=== PATIENT | male | born 1945 | race Caucasian/White ===

== ENCOUNTER → 2024-03-24 15:44 | Outpatient (REF) | payer BC, SELFPAY | LOC: HWRCS 15:44 | PROVIDERS: ATTENDING PHYSICIAN Internal Medicine Cardiovascular Disease; FAMILY PHYSICIAN Family Medicine | DX: I48.0 Paroxysmal atrial fibrillation (principal); I44.7 Left bundle-branch block, unspecified | CPT/HCPCS: 93306 ==

== ENCOUNTER 2024-05-06 06:24 | Day surgery (SDC) | payer BC, SELFPAY ==
--- NOTE | 2024-04-18 08:09 | HPS.HSE ---
Family Physician
-
Family Physician: Radha Early
Chief Complaint
-
Paroxysmal atrial fibrillation. Left bundle branch block.
History of Present Illness
The patient is a 78 year old male presenting today with various cardiovascular diagnoses. He previously was diagnosed with a left bundle branch block associated with syncope for which he had a Medtronic dual chamber pacemaker inserted in
2012. He also has a history of paroxysmal atrial fibrillation with occasional palpitations. His atrial fibrillation has been relatively well controlled with Carvedilol and Sotalol. He takes Eliquis for oral anticoagulation due to a CHADS-VASc of 6.
He was noted to have a battery longevity of 2 months left during his remote pacemaker device check in early March 2024. He will therefore undergo a pacemaker generator change. He denies any new complaints today such as chest pain, shortness of breath,
nausea, vomiting, diarrhea, lightheadedness, dizziness, cough, sore throat, or fever.
Medical History
Past Medical History
Past Medical History: Reports Other
Additional Past Medical History:
1. Left bundle branch block with syncope, status post Medtronic dual chamber pacemaker insertion 2012.
2. Paroxysmal atrial fibrillation, pharmacological therapy with Sotalol and Carvedilol, oral anticoagulation with Eliquis.
3. Hypertension.
4. Hyperlipidemia.
5. Suspected coronary artery disease based off nuclear stress test 2015 with associated angina.
6. Mild aortic regurgitation.
7. Probable obstructive sleep apnea.
8. GERD.
9. Irritable bowel syndrome per records.
10. 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
11. Multilevel degenerative disc disease with radiculopathy.
12. Osteoarthritis, status post bilateral total knee arthroplasty, 2008, and revision of bilateral total knee arthroplasty 2010.
13. Thyroid nodules with associated hyperthyroidism.
14. Prostate cancer, 2020, status post radiation.
15. BPH with LUTS.
16. Hearing impairment bilaterally.
Past Surgical History: Reports Other
Additional Past Surgical History:
1. Medtronic dual chamber pacemaker insertion.
2. Bilateral total knee arthroplasty.
3. Revision of bilateral total knee arthroplasty.
4. Left knee medial meniscectomy.
5. Left rotator cuff repair.
6. Resetting of dislocated right toes x2.
7. Prostate biopsy.
8. Bilateral eye surgery for double vision.
9. Right eye lens implant.
10. Multiple epidural steroid injections.
11. Colonoscopy x2.
Social History
Tobacco: Non-smoker
Alcohol: None
Personal:
Living: Other (He lives in a 2 story home with a basement with his . )
Family History
Family History: Not pertinent
Allergies / Home Medications
Allergy/Medication List:
Home medications:
1. Eliquis 5 mg p.o. twice a day.
2. Atorvastatin 40 mg p.o. at bedtime.
3. Carvedilol 12.5 mg p.o. twice a day.
4. Lisinopril 5 mg p.o. daily.
5. Methimazole 5 mg p.o. daily.
6. Multivitamin 1 tablet p.o. daily.
7. Sotalol 80 mg p.o. twice a day.
8. Terazosin 5 mg p.o. at bedtime.
9. Nitroglycerin 0.4 mg sublingual every 5-15 minutes as needed (max of 3 doses).
Allergies: Aspirin. Naproxen.
Review of Systems
-
A 12 point ROS was completed and negative except as noted: Yes
Physical Exam
Vital Signs
Blood pressure 162/89. Heart rate 60. Respirations 18. Pulse ox 98% on room air.
Height 5 feet, 8 inches. Weight 69.9 kg. BMI 23.4.
Physical Exam
General: Well Developed, Well Nourished and No Apparent Distress
HEENT: NormoCephalic, Moist mucous membranes, Atraumatic and PERRLA
Respiratory: Clear
Cardiac: Regular Rhythm and Other (Pacemaker site intact. )
GI: Soft, Non Tender and Non Distended
Musculoskeletal: No Edema and Normal Gait & Station
Skin: Warm and Dry
Neuro: AO x 3 and Nonfocal/grossly intact
Laboratory Results
-
DIAGNOSTIC STUDIES as of 04/18/2024: White blood cell count 6.8. Hemoglobin 15.4. Platelet count 171,000. Sodium 140. Potassium 4.4. BUN 29. Creatinine 1.1. Glucose 95. Calcium 9.5. AST 31. ALT 28. Albumin 3.7.
EKG 04/18/2024: Atrial paced rhythm with prolonged AV conduction. Left axis deviation. Left bundle branch block. Compared to the previous EKG of May 23, 2021, no significant change was seen.
Echocardiogram 03/24/2024: Normal left ventricular chamber size with mildly reduced systolic function; left ventricular ejection fraction is 45-50% by visual assessment. Hypokinesis of the mid to distal septal wall. Abnormal (paradoxical) septal
motion consistent with left bundle branch block. Mild aortic regurgitation. Compared to previous echo images from 07/21/22, the septal wall hypokinesis is new.
Nuclear stress test 05/21/2021: Small, fixed apical, apical septal and inferoseptal perfusion defects suggestive of small areas of prior myocardial infarction. No reversible perfusion defects to suggest myocardial ischemia. Ejection fraction 41% on
gated stress images. Intermediate risk study. When compared with the previous study from 08/29/16, the basal anterolateral ischemia is no longer seen. The previous fixed inferoseptal and inferior perfusion defects are again seen on today's study.
The ejection fraction is similar; previous study with ejection fraction 45%.
Impression/Plan
-
IMPRESSION/PLAN:
1. Left bundle branch block and paroxysmal atrial fibrillation: The patient is in need of a pacemaker generator change with Dr. Gideon Kumar on 05/06/2024. The benefits and risks of the procedure have been explained to the patient. The patient
understands these risks and wishes to proceed. He is aware to hold his Eliquis the night before and morning of his procedure.
[2024-04-18 08:38] LABS: % Basophils 0.6 % (0-2); % Immature Granulocytes 0.4 % (0-0.5); % Lymphocytes 15.9 % (20.5-51.1); % Monocytes 12.1 % (1.7-9.3); Absolute Eosinophils 0.3 10^3/uL (0-0.7); Absolute Lymphocytes 1.1 10^3/uL (1.2-3.4); Absolute Monocytes 0.8 10^3/uL (0.1-0.6); Absolute Neutrophils 4.6 10^3/uL (1.4-6.5); Hematocrit 45.4 % (39.0-52.0); Hemoglobin 15.4 g/dL (13.0-18.0); Mean Corp Hgb Conc. 33.9 g/dL (33.0-37.0); Mean Corpuscular Hgb 31.8 pg (27.0-31.0); Mean Corpuscular Volume 93.8 fL (80.0-94.0); Mean Platelet Volume 10.1 fL (7.4-10.4); Nucleated Red Blood Cells % 0 % (-); Platelet Count 171 10^3/uL (130-400); Red Blood Cell Count 4.84 10^6/uL (4.70-6.10); Red Cell Dist. Width 12.7 % (11.5-14.5); White Blood Cell Count 6.8 10^3/uL (4.8-10.8)
[2024-04-18 08:55] LABS: ALT (SGPT) 28 U/L (0-50); AST (SGOT) 31 U/L (17-59); Albumin 3.7 g/dl (3.5-5.0); Alkaline Phosphatase 87 U/L (38-126); Blood Urea Nitrogen 29 mg/dl (9-20); Calcium 9.5 mg/dl (8.4-10.2); Carbon Dioxide 27 mmol/L (22-30); Chloride 107 mmol/L (98-107); Glucose 95 mg/dl (70-99); Potassium 4.4 mmol/L (3.5-5.1); Sodium 140 mmol/L (135-145); Total Bilirubin 1.3 mg/dl (0.2-1.3); Total Protein 6.3 g/dl (6.3-8.2); eGFR > 60.00
[2024-04-18 09:32] VITALS: BMI 23.4
[2024-05-06] VITALS (8 sets, daily range): BP systolic 133–167; BP diastolic 69–89; BMI 24.9
--- NOTE | 2024-05-06 09:47 | ITS.CL.PACE ---
[employer] - Pacemaker Implant
Pacemaker Implant
Procedure Report:
Date of Procedure: May 06, 2024
Procedure: Dual chamber pacemaker generator change. Pacemaker pulse generator explantation and pacemaker pulse generator implantation.
Indication: Pacemaker at [facility] from natural battery depletion. The pacemaker is for the treatment of nonreversible symptomatic bradycardia due to paroxysmal second and/or third degree atrioventricular block.
Performing physician: Gideon Kumar MD, [facility].
Implant: Pacemaker Pulse Generator: Medtronic; Model# [id number]; Serial# [id number].
Explanted Pacemaker Pulse Generator (Implanted 05/10/2013): Medtronic: Model# [id number]; Serial# [id number].
Retained Leads (Implanted 05/10/2013):
RA Lead: Medtronic; Model# [id number]-45cm; Serial# [id number].
RV Lead: Medtronic; Model# [id number]-52cm; Serial# [id number].
Technique: A time out was performed. The procedure site was identified. The patient was anesthetized by the anesthesia service. Preoperative cefazolin was administered prior to skin incision. The patient was prepped and draped in the usual fashion.
Local anesthetic was applied to the left prepectoral subcutaneous tissue. A 3 inch incision was made over the pulse generator. The capsule was entered with Bovie cautery. The old pacemaker pulse generator was explanted. No Bovie cautery was applied
to the lead system. The leads were appropriately attached to the new device. The pocket was irrigated with antibiotic solution. Hemostasis was excellent. The device and leads were placed in the pocket. The incision was closed in three layers with
absorbable suture. Steri-strips and an silver impregnated dressing were applied. The estimated blood loss was 1 mL. There were no complications. No fluoroscopy.
Lead Analysis:
RA lead: P: 1.8 mV; Threshold: 0.75 V @ 0.4 ms; Impedance: 361 ohms.
RV lead: R: 13.4 mV; Threshold: 1.5 V @ 0.4 ms; Impedance: 380 ohms.
Final Programming: DDDR 60 - 130 bpm.
Conclusion: Uncomplicated Medtronic pacemaker change. The pacemaker system is MRI conditional.
Recommendation: Routine post pacemaker care.
cc: Radha Early DO.
== END 2024-05-06 10:25 | disposition home or self-care (01) ==
LOC: CATH 06:24
PROVIDERS: ATTENDING PHYSICIAN Internal Medicine Cardiovascular Disease; FAMILY PHYSICIAN Family Medicine
DX: Z45.010 Encounter for checking and testing of cardiac pacemaker pulse generator [battery] (principal); I49.5 Sick sinus syndrome; I44.30 Unspecified atrioventricular block; I44.7 Left bundle-branch block, unspecified; I48.0 Paroxysmal atrial fibrillation; I25.10 Atherosclerotic heart disease of native coronary artery without angina pectoris; I10 Essential (primary) hypertension; E78.5 Hyperlipidemia, unspecified; I35.1 Nonrheumatic aortic (valve) insufficiency; K21.9 Gastro-esophageal reflux disease without esophagitis; Z85.46 Personal history of malignant neoplasm of prostate; Z79.01 Long term (current) use of anticoagulants
CPT/HCPCS: 33228; 36415; 80053; 85025; 93005; C1785

== ENCOUNTER → 2024-06-15 12:00 | Outpatient (REF) | payer BC, SELFPAY | LOC: DHSLP 12:00 | PROVIDERS: ATTENDING PHYSICIAN Internal Medicine Critical Care Medicine; FAMILY PHYSICIAN Family Medicine | DX: G47.33 Obstructive sleep apnea (adult) (pediatric) (principal) | CPT/HCPCS: 95806 ==

== ENCOUNTER 2024-08-28 08:11 | Emergency (ER) | payer BC, SELFPAY ==
[2024-08-28] VITALS (24 sets, daily range): BP systolic 94–153; BP diastolic 63–120
[2024-08-28 08:59] LABS: % Basophils 0.4 % (0-2); % Eosinophils 2.3 % (0-6); % Immature Granulocytes 0.4 % (0-0.5); % Lymphocytes 11.9 % (20.5-51.1); % Monocytes 7.6 % (1.7-9.3); % Neutrophils 77.4 % (42.2-75.2); Absolute Eosinophils 0.2 10^3/uL (0-0.7); Absolute Lymphocytes 0.9 10^3/uL (1.2-3.4); Absolute Monocytes 0.6 10^3/uL (0.1-0.6); Absolute Neutrophils 5.9 10^3/uL (1.4-6.5); Hematocrit 49.8 % (39.0-52.0); Hemoglobin 16.6 g/dL (13.0-18.0); Mean Corp Hgb Conc. 33.3 g/dL (33.0-37.0); Mean Corpuscular Hgb 31.9 pg (27.0-31.0); Mean Corpuscular Volume 95.6 fL (80.0-94.0); Mean Platelet Volume 10.3 fL (7.4-10.4); Nucleated Red Blood Cells % 0 % (-); Platelet Count 187 10^3/uL (130-400); Red Blood Cell Count 5.21 10^6/uL (4.70-6.10); White Blood Cell Count 7.7 10^3/uL (4.8-10.8)
[2024-08-28 09:03] LABS: INR 1.15; PT 14.5 Sec (11.4-14.6)
--- NOTE | 2024-08-28 09:06 | ED.GENMED ---
History of Present Illness
<Margaret Gilman PA-C - Last Filed: 08/28/24 15:32>
General
Chief Complaint: Chest Pain
Source: patient
Exam Limitations: none
Time Seen by Provider: 08/28/24 09:03
Nursing documentation reviewed up to this point in time: agreed with
History of Present Illness
History of Present Illness:
79-year-old male past medical history of A-fib on Eliquis, hypertension, thyroid disease, coronary artery disease, pacemaker in place presents emergency department today with concerns of chest discomfort since last night. He states that he woke up
in the night with this sensation. Patient states that he feels in a band across his chest. He has no radiation of these symptoms into the jaw or extremities. He denies any fevers, cough, URI symptoms, abdominal pain, nausea, vomiting. Patient
states that he felt this way before when he has gone into afib. He has required cardioversion in the past. He also has associated transient dizziness/lightheadedness. He denies syncopal episodes. He takes carvedilol and sotalol for rate control. He
has a Medtronic pacemaker.
Past History
<Margaret Gilman PA-C - Last Filed: 08/28/24 15:32>
Past History
ED Past Medical History: Arrthythmia (bradycardia), Other (R BBB) and Other (pacer)
ED Past Surgical History: Cardiac
Social History
Tobacco: Non-smoker
Drug: None
Personal:
Living: with family
Employment: Employed
Family History
Family History: Other (His mother had a pacemaker. His father had rheumatic fever with a 'weak heart')
Review of Systems
<Margaret Gilman PA-C - Last Filed: 08/28/24 15:32>
Review of Systems
All Other Systems: ROS reviewed and negative except as documented in HPI and ROS
Phy Exam
<Margaret Gilman PA-C - Last Filed: 08/28/24 15:32>
Physical Exam
Physical Exam:
General: Patient is well appearing and in no acute distress; non-toxic
Skin: Warm and dry, no rashes or lesions
Head: Normocephalic, atraumatic
Eyes: Sclera non-icteric. EOMs intact. PERRLA.
Cardiac: Heart rate irregularly irregular
Peripheral Vascular: No lower extremity swelling or edema, 2+ dorsalis pedis and posterior tibial pulses bilaterally
Pulm: Normal respiratory effort, no wheezes, rales, or rhonchi
Neuro: CN II-XII intact, no focal neurologic deficits.
Psychiatric: Appropriate mood and affect.
Scores
<Margaret Gilman PA-C - Last Filed: 08/28/24 15:32>
Heart Score for Chest Pain Patients
STEMI patient?: No
History: Slightly or Non-Suspicious
ECG: Nonspecific Repolarization
Age: >/= 65 years
Risk Factors: >/= 3 Risk Factors or History of CAD
Troponin: >1 - <3 x Normal Limit
Heart Score for Chest Pain Patients: 6
Heart Score Risk: 20.3% MACE over next 6 weeks
<Naseem Geiger DO - Last Filed: 08/29/24 12:07>
Heart Score for Chest Pain Patients
Heart Score for Chest Pain Patients: 6
Heart Score Risk: 20.3% MACE over next 6 weeks
Course
<Margaret Gilman PA-C - Last Filed: 08/28/24 15:32>
Orders/Labs/Results
Orders:
Orders
08/28/24 08:15
EKG [Electrocardiogram (*1)] Urgent
Reason for Study: Chest Pain
08/28/24 08:16
EKG- Treatment ONCE
08/28/24 08:44
Complete Blood Count/With Diff Urgent
Comprehensive Metabolic Panel Urgent
PT/INR [Prothrombin Time] Urgent
PTT Urgent
Troponin I Urgent
08/28/24 09:20
pacemaker [Interrogate Pacemaker- Treatment] ONCE
08/28/24 09:30
Diltiazem HCl [Cardizem] 10 mg IV NOW STA
08/28/24 09:39
Add On- LAB Urgent
Tests Added?: TSH reflex to T4
08/28/24 09:45
Diltiazem 125 mg/125 ml Nss [Cardizem] 125 mg in 125 ml IV PER PROTOCOL
Initial dose in mg/hr, then titrate:: 5
Titrate to keep:: Heart rate 80-100 bpm
Titrate by mg/hr:: 5 mg/hr
Frequency of titrations (minutes):: 15
Maximum dose in mg/hr:: 15
08/28/24 10:12
Electrocardiogram (*1) Urgent
Reason for Study: Atrial Fibrillation
EKG- Treatment ONCE
08/28/24 10:28
Electrocardiogram (*1) Urgent
Reason for Study: Chest Pain
EKG- Treatment ONCE
08/28/24 11:15
Apixaban [Eliquis] 5 mg PO BID
08/28/24 12:17
Propofol [Diprivan] 20 ml .ROUTE .STK-MED
Abnormal Lab Results
08/28/24
08:44
MCV 95.6 H fL
(80.0-94.0)
MCH 31.9 H pg
(27.0-31.0)
Absolute Lymphs (auto) 0.9 L 10^3/uL
(1.2-3.4)
Neutrophils % 77.4 H %
(42.2-75.2)
Lymphocytes % 11.9 L %
(20.5-51.1)
BUN 25 H mg/dl
(9-20)
Glucose 147 H mg/dl
(70-99)
08/28/24 08:44
08/28/24 08:44
Vital Signs
Initial and Last Documented VS:
Initial Vital Signs
Temp Pulse Resp BP Pulse Ox
98.5 F 136 16 111/79 98
08/28/24 08:20 08/28/24 08:20 08/28/24 08:20 08/28/24 08:20 08/28/24 08:20
Last Documented Vital Signs
Temp Pulse Resp BP Pulse Ox
98 F 61 21 142/105 94
08/28/24 13:50 08/28/24 13:45 08/28/24 13:45 08/28/24 13:45 08/28/24 13:30
<Naseem Geiger, DO - Last Filed: 08/29/24 12:07>
Orders/Labs/Results
Orders:
Orders
08/28/24 08:15
EKG [Electrocardiogram (*1)] Urgent
Reason for Study: Chest Pain
08/28/24 08:16
EKG- Treatment ONCE
08/28/24 08:44
Complete Blood Count/With Diff Urgent
Comprehensive Metabolic Panel Urgent
PT/INR [Prothrombin Time] Urgent
PTT Urgent
Troponin I Urgent
08/28/24 09:20
pacemaker [Interrogate Pacemaker- Treatment] ONCE
08/28/24 09:30
Diltiazem HCl [Cardizem] 10 mg IV NOW STA
08/28/24 09:39
Add On- LAB Urgent
Tests Added?: TSH reflex to T4
08/28/24 09:45
Diltiazem 125 mg/125 ml Nss [Cardizem] 125 mg in 125 ml IV PER PROTOCOL
Initial dose in mg/hr, then titrate:: 5
Titrate to keep:: Heart rate 80-100 bpm
Titrate by mg/hr:: 5 mg/hr
Frequency of titrations (minutes):: 15
Maximum dose in mg/hr:: 15
08/28/24 10:12
Electrocardiogram (*1) Urgent
Reason for Study: Atrial Fibrillation
EKG- Treatment ONCE
08/28/24 10:28
Electrocardiogram (*1) Urgent
Reason for Study: Chest Pain
EKG- Treatment ONCE
08/28/24 11:15
Apixaban [Eliquis] 5 mg PO BID
08/28/24 12:17
Propofol [Diprivan] 20 ml .ROUTE .STK-MED
Abnormal Lab Results
08/28/24
08:44
MCV 95.6 H fL
(80.0-94.0)
MCH 31.9 H pg
(27.0-31.0)
Absolute Lymphs (auto) 0.9 L 10^3/uL
(1.2-3.4)
Neutrophils % 77.4 H %
(42.2-75.2)
Lymphocytes % 11.9 L %
(20.5-51.1)
BUN 25 H mg/dl
(9-20)
Glucose 147 H mg/dl
(70-99)
08/28/24 08:44
08/28/24 08:44
Vital Signs
Initial and Last Documented VS:
Initial Vital Signs
Temp Pulse Resp BP Pulse Ox
98.5 F 136 16 111/79 98
08/28/24 08:20 08/28/24 08:20 08/28/24 08:20 08/28/24 08:20 08/28/24 08:20
Last Documented Vital Signs
Temp Pulse Resp BP Pulse Ox
98 F 61 21 142/105 94
08/28/24 13:50 08/28/24 13:45 08/28/24 13:45 08/28/24 13:45 08/28/24 13:30
Procedures
<Margaret Gilman PA-C - Last Filed: 08/28/24 15:32>
Moderate Sedation
ASA Risk Score: Class III
Chart and allergies reviewed: Yes
Consent for anesthesia obtained: Yes
Time out completed (validating right patient & procedure): Yes
Moderate Sedation Start Time(when first medication is given): 12:40
History of difficult intubation: No
Airway free of obstruction: Yes
Patient has a gag reflex: Yes
Patient is able to open mouth: Yes
Patient has no dentures: Yes
Patient has no loose teeth: Yes
Medication administered by Provider during Moderate Sedation: IV Propofol (mg)
Total dose administered: 55
Time drug administered: 12:40
Moderate Sedation Procedure End Time: 12:50
Cardioversion
Indication:: Afib
Synchronized?: Yes
Energy Used: 150 joules
Successful?: Yes
Any reaction or bad outcome to prior sedation/anesthesia?: No history of a reaction
Sedation level to be attained: moderate
Time out completed at (validating right patient & procedure): 12:38
Medication administered by Provider during Moderate Sedation: IV Propofol (mg)
Total dose administered: 55
Time drug administered: 12:40
Start Time: 12:40
Stop Time: 12:50
<Margaret Gilman PA-C - Last Filed: 08/28/24 15:32>
MDM/Problems Addressed
Differential Diagnosis Includes:
ddx include symptomatic afib, ACS, thyroid disease
MDM/Problems Addressed:
79-year-old male past medical history of A-fib on Eliquis, hypertension, thyroid disease, coronary artery disease, pacemaker in place presents emergency department today with concerns of chest discomfort since last night.
he states he feels this way when he goes into afib. Patient was found to be in rapid afib, pressure stable. Will order pacemaker interrogation, will give diltiazem bolus and start IV drip.
CBC, CMP unremarkable. On reassessment, patient is symptom free. His heart rate is in the 70s with afib noted. Will consult Dr. Kumar. Case reviewed with Dr. Kumar via telephone who recommends cardioversion. Patient did not take his Eliquis this
morning. Will give Eliquis dose. My attending Dr. Geiger made aware and personally evaluated patient and conducted cardioversion. Patient successfully cardioverted. here to take patient home, patient's vitals are stable, patient will call
José's office to schedule sooner follow up appointment. Patient stable for discharge.
Chronic conditions affecting care:
CAD, afib on eliquis, HTN,
<Margaret Gilman PA-C - Last Filed: 08/28/24 15:32>
*Pulse Oximetry
Patient hypoxic: no
*EKG
Interpreted by ED Provider?: Yes
EKG Intrepretation Date: 08/28/24
Interpretation: abnormal
Comparison EKG: changes noted (rapid afib, increase in ventricular rate )
Heart Rate: 126
Rate: tachycardiac
Rhythm: a-fib
[place]: left axis deviation
QRS Pattern: left bundle branch block
Ischemia: no ischemia
*Critical Care Note
Total Time (30-74mins, 75-104mins- exclusive of procedures): 30
comment:
Critical care statement: A total of minutes of critical care time was provided for this patient. This includes management of unstable vital signs, evaluation of the patient at bedside, frequent reassessment, discussion with consultants/hospitalist,
and review of pertinent medical records. This time was separate from time utilized to perform any aforementioned documented procedures.
Data Reviewed
Review of Other/Old Records Reveals: Records (Reviewed ER physician documentation from 12/13/2020 patient seen for A-fib, cardioverted at the time, reviewed discharge summary from 05/24/2021, patient needed for coronary artery disease rapid A-fib had
positive stress test)
Source: patient and records
Prescriptions/Medications Considered But Not Given:
Due to cardioversion, no change in patient's rate control medications at this time. Advised patient to continue his medications as directed.
Further Testing Considered But Not Given:
n/a
<Margaret Gilman PA-C - Last Filed: 08/28/24 15:32>
Patient Management
Escalation/DeEscalation of care consider admission/obs:
admit not indicated, patient stable for discharge
<SOFIA Shukla Last Filed: 08/28/24 15:32>
Update Note
Update Note:
Medtronic pacemaker call: ongoing atrial arrhythmia since yesterday
has had 3 SVT episodes since last interrogation, most recent earlier this morning
occassional under sensing on atrial lead

10:06 am-- Patient states chest discomfort has resolved, denies dizziness. Rate now in the 90s-110s.
ED Attending Note
<SOFIA Shukla Last Filed: 08/28/24 15:32>
-
Portions of this chart may have been created with voice recognition software.� Occasional wrong word or��sound alike� substitutions may have occurred due to the inherent limitations of voice recognition software.
<Naseem Geiger DO - Last Filed: 08/29/24 12:07>
ED Attending Note
Patient seen and examined by attending physician: Yes
I performed a history and physical exam of patient and discussed management with resident, I reviewed resident's note and agree with documented findings and plan of care.: Yes
ED Attending Note:
I reviewed and agree with history and plan by Margaret Gilman. My exam revealed 79-year-old male in atrial fibrillation, patient tolerated sedation and cardioversion well. Stable for discharge.
Discharge Plan
Departure
Patient Disposition: Home (Routine Discharge)
Date of Disposition: 08/28/24
Time of Disposition: 13:30
Patient with high blood pressure during this ER visit?: Yes
Condition: Good
Discharge Problem:
Atrial fibrillation
Instructions: Cardioversion (DC), Procedural Sedation, Adult ED, MODERATE SEDATION ADULT, BLOOD PRESSURE
Prescriptions:
No Action
atorvastatin 40 MG tablet
40 mg PO HS
methimazole 5 MG tablet
5 mg PO DAILY
carvedilol 12.5 mg Tablet
12.5 mg PO BID
sotalol 80 mg Tablet
80 mg PO BID
lisinopril 5 mg Tablet
5 mg PO DAILY
Eliquis 5 mg Tablet
5 mg PO BID
nitroglycerin 0.4 mg Tablet, Sublingual
0.4 mg SUBLINGUAL Q5-15M PRN (Reason: angina)
terazosin 5 mg Capsule
5 mg PO HS
multivitamin with iron Tablet
1 tab PO DAILY
cephalexin 500 mg capsule
500 mg PO Q8H Qty: 3 0RF
Rx Instructions:
First dose due at 2pm today
Referrals:
Radha Early, DO [Family Provider] -
Gideon Kumar MD [Active] - Call in 1-3 days for appt
Activity Restrictions/Additional Instructions:
Please call Dr. Kumar's office to schedule follow up appointment.
Please return to the emergency department should you experience chest pain, shortness of breath, dizziness, lightheadedness, headache, syncopal episodes, difficulty speaking, facial droop, or any other concerning signs or symptoms.
Interventions
Interventions:
*Risk Screen - Suicide Last Done: 08/28/24 08:20
*General Assessment Last Done: 08/28/24 08:20
*Neglect/Abuse Screening Last Done: 08/28/24 08:20
ED- Fall Risk Assessment Last Done: 08/28/24 13:52
*ED COVID-19 Vaccine History Last Done: 08/28/24 08:53
*Nursing Disposition Last Done: 08/28/24 13:52
ED- Cardiac Assessment Last Done: 08/28/24 08:53
Discharge Date and Time
Discharge Date/Time: 08/28/24 13:58
Print Language: MAORI
[2024-08-28 09:24] LABS: ALT (SGPT) 23 U/L (0-50); AST (SGOT) 32 U/L (17-59); Alkaline Phosphatase 88 U/L (38-126); Blood Urea Nitrogen 25 mg/dl (9-20); Calcium 9.3 mg/dl (8.4-10.2); Carbon Dioxide 26 mmol/L (22-30); Chloride 104 mmol/L (98-107); Glucose 147 mg/dl (70-99); Potassium 4.5 mmol/L (3.5-5.1); Sodium 140 mmol/L (135-145); Total Bilirubin 1.2 mg/dl (0.2-1.3); Total Protein 6.5 g/dl (6.3-8.2); eGFR > 60.00
[2024-08-28 09:37] LABS: Troponin I 0.021 ng/ml
[2024-08-28] MEDS: CARDIZEM 10 MG IV (09:42)
[2024-08-28] MEDS: CARDIZEM 125 IV (09:42)
[2024-08-28] MEDS: ELIQUIS 5 MG PO (11:14)
== END 2024-08-28 13:58 | disposition home or self-care (01) ==
LOC: EMR 08:11
PROVIDERS: EMERGENCY PHYSICIAN Emergency Medicine; FAMILY PHYSICIAN Family Medicine
DX: I48.91 Unspecified atrial fibrillation (principal); I10 Essential (primary) hypertension; I25.10 Atherosclerotic heart disease of native coronary artery without angina pectoris; Z79.01 Long term (current) use of anticoagulants; Z95.0 Presence of cardiac pacemaker
CPT/HCPCS: 99291; 92960; 96374; 99152; 80053; 84484; 85025; 85610; 85730; 93005

== ENCOUNTER 2024-11-11 10:09 | Emergency (ER) | payer BC, SELFPAY ==
[2024-11-11] VITALS (17 sets, daily range): BP systolic 96–164; BP diastolic 63–123; BMI 26.2
--- NOTE | 2024-11-11 10:20 | ED.GENMED ---
ED Provider Triage
<José Luis Naqvi PA-C - Last Filed: 11/11/24 10:21>
-
Patient seen by provider in Triage?: Seen in Triage
79-year-old male sent in by family doctor via EMS for complaints of lightheadedness. This started yesterday. He also had some chest discomfort yesterday. He is on lisinopril and Coreg as well as Eliquis. He denies headache. No current chest
pain. He denies a spinning sensation but does note more of a lightheaded sensation.
Patient is alert and neurologically and conversing appropriately with stable vital signs
EKG ordered as well as labs including a troponin secondary to the chest pain yesterday.
Patient evaluated by healthcare provider at triage but warrants further assessment
History of Present Illness
<José Luis Naqvi PA-C - Last Filed: 11/11/24 10:21>
General
Chief Complaint: Heart Rate Problem
Time Seen by Provider: 11/11/24 14:20
<Bernardino Lopez PA-C - Last Filed: 11/11/24 20:36>
History of Present Illness
History of Present Illness:
79-year-old male presents the emergency department for evaluation of chest discomfort and irregular heart rate. He has no history of A-fib and takes Eliquis as well as sotalol. Has a pacemaker in place. Required cardioversion about 3 months ago.
Planning to follow-up with his laboratory associate to discuss a cardioversion. Has been compliant with his Eliquis to date. No chest pain or shortness of breath at rest
Past History
<José Luis Naqvi PA-C - Last Filed: 11/11/24 10:21>
Past History
ED Past Medical History: Arrthythmia (bradycardia), Other (R BBB) and Other (pacer)
ED Past Surgical History: Cardiac
Social History
Tobacco: Non-smoker
Drug: None
Personal:
Living: with family
Employment: Employed
Family History
Family History: Other (His mother had a pacemaker. His father had rheumatic fever with a 'weak heart')
Review of Systems
<Bernardino Lopez PA-C - Last Filed: 11/11/24 20:36>
Review of Systems
Allergies reviewed?: Yes
All Other Systems: ROS reviewed and negative except as documented in HPI and ROS
Phy Exam
<Bernardino Lopez PA-C - Last Filed: 11/11/24 20:36>
Physical Exam
Physical Exam:
GEN: Well appearing, NAD, WDWN
HEENT: Oral mucosa moist, no scleral icterus
Cardiac: Irregular and tachycardic
Lung: No respiratory distress, no tachypnea
MSK: No gross deformity or injuries
Skin: Good color, no pallor or jaundice, no rashes
Neuro: AO x3, moves all extremities freely
Psych: Calm, cooperative
Course
<José Luis Naqvi PA-C - Last Filed: 11/11/24 10:21>
Orders/Labs/Results
Orders:
Orders
11/11/24 10:17
EKG [Electrocardiogram (*1)] Urgent
Reason for Study: Syncope
11/11/24 10:18
EKG- Treatment ONCE
11/11/24 10:21
CR Chest - 2 Views Urgent
Comment:
Reason For Exam: chest pain
11/11/24 10:33
Complete Blood Count/With Diff Urgent
Comprehensive Metabolic Panel Urgent
TSH Reflex To Free T4 Urgent
Troponin I Urgent
11/11/24 14:39
Troponin I Urgent
11/11/24 15:05
Electrocardiogram (*1) Urgent
Reason for Study: Other
Other Reason for Exam: repeat troponin
EKG- Treatment ONCE
11/11/24 15:40
Propofol [Diprivan] 20 ml .ROUTE .STK-MED
Abnormal Lab Results
11/11/24
10:33
MCV 95.6 H fL
(80.0-94.0)
MCH 31.3 H pg
(27.0-31.0)
MCHC 32.7 L g/dL
(33.0-37.0)
Absolute Lymphs (auto) 0.8 L 10^3/uL
(1.2-3.4)
Absolute Monos (auto) 0.8 H 10^3/uL
(0.1-0.6)
Neutrophils % 77.5 H %
(42.2-75.2)
Lymphocytes % 10.0 L %
(20.5-51.1)
Monocytes % 9.5 H %
(1.7-9.3)
BUN 29 H mg/dl
(9-20)
Total Bilirubin 1.4 H mg/dl
(0.2-1.3)
11/11/24 10:33
11/11/24 10:33
Vital Signs
Initial and Last Documented VS:
Initial Vital Signs
Temp Pulse Resp BP Pulse Ox
97.6 F 80 18 98/63 98
11/11/24 10:21 11/11/24 10:21 11/11/24 10:21 11/11/24 10:21 11/11/24 10:21
Last Documented Vital Signs
Temp Pulse Resp BP Pulse Ox
97.6 F 61 13 127/76 96
11/11/24 16:28 11/11/24 17:20 11/11/24 17:20 11/11/24 17:20 11/11/24 17:20
<Yareli Gomez DO - Last Filed: 11/11/24 16:12>
Orders/Labs/Results
Orders:
Orders
11/11/24 10:17
EKG [Electrocardiogram (*1)] Urgent
Reason for Study: Syncope
11/11/24 10:18
EKG- Treatment ONCE
11/11/24 10:21
CR Chest - 2 Views Urgent
Comment:
Reason For Exam: chest pain
11/11/24 10:33
Complete Blood Count/With Diff Urgent
Comprehensive Metabolic Panel Urgent
TSH Reflex To Free T4 Urgent
Troponin I Urgent
11/11/24 14:39
Troponin I Urgent
11/11/24 15:05
Electrocardiogram (*1) Urgent
Reason for Study: Other
Other Reason for Exam: repeat troponin
EKG- Treatment ONCE
11/11/24 15:40
Propofol [Diprivan] 20 ml .ROUTE .STK-MED
Abnormal Lab Results
11/11/24
10:33
MCV 95.6 H fL
(80.0-94.0)
MCH 31.3 H pg
(27.0-31.0)
MCHC 32.7 L g/dL
(33.0-37.0)
Absolute Lymphs (auto) 0.8 L 10^3/uL
(1.2-3.4)
Absolute Monos (auto) 0.8 H 10^3/uL
(0.1-0.6)
Neutrophils % 77.5 H %
(42.2-75.2)
Lymphocytes % 10.0 L %
(20.5-51.1)
Monocytes % 9.5 H %
(1.7-9.3)
BUN 29 H mg/dl
(9-20)
Total Bilirubin 1.4 H mg/dl
(0.2-1.3)
11/11/24 10:33
11/11/24 10:33
Vital Signs
Initial and Last Documented VS:
Initial Vital Signs
Temp Pulse Resp BP Pulse Ox
97.6 F 80 18 98/63 98
11/11/24 10:21 11/11/24 10:21 11/11/24 10:21 11/11/24 10:21 11/11/24 10:21
Last Documented Vital Signs
Temp Pulse Resp BP Pulse Ox
97.6 F 61 13 127/76 96
11/11/24 16:28 11/11/24 17:20 11/11/24 17:20 11/11/24 17:20 11/11/24 17:20
<Bernardino Lopez PA-C - Last Filed: 11/11/24 20:36>
Orders/Labs/Results
Orders:
Orders
11/11/24 10:17
EKG [Electrocardiogram (*1)] Urgent
Reason for Study: Syncope
11/11/24 10:18
EKG- Treatment ONCE
11/11/24 10:21
CR Chest - 2 Views Urgent
Comment:
Reason For Exam: chest pain
11/11/24 10:33
Complete Blood Count/With Diff Urgent
Comprehensive Metabolic Panel Urgent
TSH Reflex To Free T4 Urgent
Troponin I Urgent
11/11/24 14:39
Troponin I Urgent
11/11/24 15:05
Electrocardiogram (*1) Urgent
Reason for Study: Other
Other Reason for Exam: repeat troponin
EKG- Treatment ONCE
11/11/24 15:40
Propofol [Diprivan] 20 ml .ROUTE .STK-MED
Abnormal Lab Results
11/11/24
10:33
MCV 95.6 H fL
(80.0-94.0)
MCH 31.3 H pg
(27.0-31.0)
MCHC 32.7 L g/dL
(33.0-37.0)
Absolute Lymphs (auto) 0.8 L 10^3/uL
(1.2-3.4)
Absolute Monos (auto) 0.8 H 10^3/uL
(0.1-0.6)
Neutrophils % 77.5 H %
(42.2-75.2)
Lymphocytes % 10.0 L %
(20.5-51.1)
Monocytes % 9.5 H %
(1.7-9.3)
BUN 29 H mg/dl
(9-20)
Total Bilirubin 1.4 H mg/dl
(0.2-1.3)
11/11/24 10:33
11/11/24 10:33
Vital Signs
Initial and Last Documented VS:
Initial Vital Signs
Temp Pulse Resp BP Pulse Ox
97.6 F 80 18 98/63 98
11/11/24 10:21 11/11/24 10:21 11/11/24 10:21 11/11/24 10:21 11/11/24 10:21
Last Documented Vital Signs
Temp Pulse Resp BP Pulse Ox
97.6 F 61 13 127/76 96
11/11/24 16:28 11/11/24 17:20 11/11/24 17:20 11/11/24 17:20 11/11/24 17:20
Procedures
<Yareli Gomez, DO - Last Filed: 11/11/24 16:12>
Cardioversion
Indication:: Afib
Performed by:: Bernardino Lopez and Yareli Gomez
Synchronized?: Yes
Energy Used: 200 joules
Number of attempts: 1
Successful?: Yes
Complications: none
ASA Risk Score: Class II
Any reaction or bad outcome to prior sedation/anesthesia?: No history of a reaction
Sedation level to be attained: moderate
Chart and allergies reviewed: Yes
Patient reassessed prior to sedation: Yes
Time out completed at (validating right patient & procedure): 16:02
History of difficult intubation: No
Airway free of obstruction: Yes
Patient has a gag reflex: Yes
Patient is able to open mouth: Yes
Patient has no dentures: Yes
Patient has no loose teeth: Yes
Medication administered by Provider during Moderate Sedation: IV Propofol (mg)
Total dose administered: 40
Time drug administered: 16:03
Start Time: 16:03
Stop Time: 16:15
<Bernardino Lopez PA-C - Last Filed: 11/11/24 20:36>
MDM/Problems Addressed
MDM/Problems Addressed:
Case was discussed with cardiology, they agree with pursuing cardioversion. Patient has no ischemic symptoms at this time. Tolerated cardioversion without difficulty, will follow-up with his laboratory associate to discuss ablation
<Bernardino Lopez PA-C - Last Filed: 11/11/24 20:36>
*Critical Care Note
Total Time (30-74mins, 75-104mins- exclusive of procedures): Not Applicable
ED Attending Note
<José Luis Naqvi PA-C - Last Filed: 11/11/24 10:21>
-
Portions of this chart may have been created with voice recognition software.� Occasional wrong word or��sound alike� substitutions may have occurred due to the inherent limitations of voice recognition software.
<Yareli Gomez DO - Last Filed: 11/11/24 16:12>
ED Attending Note
Patient seen and examined by attending physician: Yes
I performed the substantive portion of visit, reviewed & personally made and approve the management plan that is documented in note by myself or ANDREI.: Yes
I performed a history and physical exam of patient and discussed management with resident, I reviewed resident's note and agree with documented findings and plan of care.: Yes
ED Attending Note:
79-year-old male with known history of A-fib presenting for concern of being in A-fib. Patient is on Eliquis and sotalol. Notes that last time he was in A-fib was in August, at which time he had cardioversion. Reports some lightheadedness and
fatigue. Reports compliance with his medications. Denies shortness of breath or chest pain. Vital signs are significant for tachycardia.
On exam, patient resting comfortably, heart rate is irregularly irregular. Blood pressure is stable. In discussion with cardiology, recommending cardioversion. Patient, will proceed. Please see procedure note. Otherwise plan for outpatient
continued cardiology follow-up
Discharge Plan
Departure
Patient Disposition: Home (Routine Discharge)
Date of Disposition: 11/11/24
Time of Disposition: 17:14
Patient with high blood pressure during this ER visit?: No
Discharge Problem:
Atrial fibrillation
Instructions: Atrial Fibrillation (DC), MODERATE SEDATION ADULT
Prescriptions:
No Action
atorvastatin 40 MG tablet
40 mg PO HS
methimazole 5 MG tablet
5 mg PO DAILY
carvedilol 12.5 mg Tablet
12.5 mg PO BID
sotalol 80 mg Tablet
80 mg PO BID
lisinopril 5 mg Tablet
5 mg PO DAILY
Eliquis 5 mg Tablet
5 mg PO BID
nitroglycerin 0.4 mg Tablet, Sublingual
0.4 mg SUBLINGUAL Q5-15M PRN (Reason: angina)
terazosin 5 mg Capsule
5 mg PO HS
multivitamin with iron Tablet
1 tab PO DAILY
cephalexin 500 mg capsule
500 mg PO Q8H Qty: 3 0RF
Rx Instructions:
First dose due at 2pm today
Referrals:
Radha Early DO [Family Provider] -
Brigid Carrero NP [Specified Professional Personl] - 11/25/24 10:20 am
Interventions
Interventions:
*Risk Screen - Suicide Last Done: 11/11/24 10:21
*General Assessment Last Done: 11/11/24 10:21
*Neglect/Abuse Screening Last Done: 11/11/24 10:21
*ED COVID-19 Vaccine History Last Done: 11/11/24 14:36
*Nursing Disposition Last Done: 11/11/24 17:26
ED- Cardiac Assessment Last Done: 11/11/24 15:00
ED- Pulmonary Assessment Last Done: 11/11/24 15:00
Discharge Date and Time
Print Language: MAURITIAN
[2024-11-11 10:44] LABS: % Basophils 0.4 % (0-2); % Eosinophils 2.1 % (0-6); % Immature Granulocytes 0.5 % (0-0.5); % Monocytes 9.5 % (1.7-9.3); % Neutrophils 77.5 % (42.2-75.2); Absolute Eosinophils 0.2 10^3/uL (0-0.7); Absolute Lymphocytes 0.8 10^3/uL (1.2-3.4); Absolute Monocytes 0.8 10^3/uL (0.1-0.6); Absolute Neutrophils 6.2 10^3/uL (1.4-6.5); Hematocrit 47.7 % (39.0-52.0); Hemoglobin 15.6 g/dL (13.0-18.0); Mean Corp Hgb Conc. 32.7 g/dL (33.0-37.0); Mean Corpuscular Hgb 31.3 pg (27.0-31.0); Mean Corpuscular Volume 95.6 fL (80.0-94.0); Mean Platelet Volume 9.9 fL (7.4-10.4); Nucleated Red Blood Cells % 0 % (-); Platelet Count 182 10^3/uL (130-400); Red Blood Cell Count 4.99 10^6/uL (4.70-6.10); Red Cell Dist. Width 12.7 % (11.5-14.5)
[2024-11-11 10:52] LABS: ALT (SGPT) 20 U/L (0-50); AST (SGOT) 23 U/L (17-59); Albumin 3.8 g/dl (3.5-5.0); Alkaline Phosphatase 75 U/L (38-126); Blood Urea Nitrogen 29 mg/dl (9-20); Calcium 9.4 mg/dl (8.4-10.2); Carbon Dioxide 30 mmol/L (22-30); Chloride 103 mmol/L (98-107); Glucose 85 mg/dl (70-99); Potassium 4.7 mmol/L (3.5-5.1); Sodium 138 mmol/L (135-145); Total Bilirubin 1.4 mg/dl (0.2-1.3); Total Protein 6.4 g/dl (6.3-8.2); eGFR > 60.00
[2024-11-11 11:04] LABS: Troponin I 0.017 ng/ml
[2024-11-11 11:30] LABS: TSH Reflex To Free T4 4.32 uIU/ml (0.47-4.68)
[2024-11-11 15:10] LABS: Troponin I 0.021 ng/ml
== END 2024-11-11 17:26 | disposition home or self-care (01) ==
LOC: EMR 10:09
PROVIDERS: Emergency Medicine; Physician Assistant; EMERGENCY PHYSICIAN Student in an Organized Health Care Education/Training Program; FAMILY PHYSICIAN Family Medicine
DX: R07.89 Other chest pain (principal); I48.91 Unspecified atrial fibrillation; Z79.01 Long term (current) use of anticoagulants; Z95.0 Presence of cardiac pacemaker
CPT/HCPCS: 99284; 92960; 71046; 80053; 84443; 84484; 85025; 93005

== ENCOUNTER → 2024-12-08 07:56 | Outpatient (REF) | payer BC, SELFPAY | LOC: RCS 07:56 | PROVIDERS: ATTENDING PHYSICIAN Internal Medicine Cardiovascular Disease; FAMILY PHYSICIAN Family Medicine | DX: Z95.0 Presence of cardiac pacemaker (principal); I48.0 Paroxysmal atrial fibrillation; I44.7 Left bundle-branch block, unspecified; I35.1 Nonrheumatic aortic (valve) insufficiency; I25.10 Atherosclerotic heart disease of native coronary artery without angina pectoris; I10 Essential (primary) hypertension | CPT/HCPCS: 93306 ==

== ENCOUNTER 2025-02-06 05:52 | Day surgery (SDC) | payer BC, SELFPAY ==
[2025-01-18 09:30] VITALS: BMI 26.4
[2025-02-06] VITALS (13 sets, daily range): BP systolic 128–152; BP diastolic 69–101; BMI 25.9
[2025-02-06 09:03] LABS: ACT-LR - POC 311 Seconds (116-155)
[2025-02-06 09:25] LABS: ACT-LR - POC 390 Seconds (116-155)
--- NOTE | 2025-02-06 09:50 | ITS.CL.ABL ---
[employer] - Ablation
Ablation
Procedure Report:
AFIB ablation:
Mr. Fairchild is a very pleasant 79 yr old gentleman with symptomatic paroxysmal AF failed Sotalol with SSS s/p dual chamber PPM is recommended for atrial fibrillation ablation.
Date of the Procedure:
02/06/2025
Indications:
Paroxysmal atrial fibrillation
Pre-Operative Diagnosis:
Paroxysmal atrial fibrillation
Post-Operative Diagnosis:
Paroxysmal atrial fibrillation
Procedure Performed:
Atrial fibrillation ablation with Pulsed-Field approach for pulmonary vein isolation
Performing Physician:
Otto Cardenas MD
Assistants:
EP staff
Anesthesia:
See anesthesia records
Detailed Description of the Procedure:
Written informed consent was obtained from the patient after a full explanation of the risks and benefits of the procedure including the risks of sedation and anesthesia.
The patient was brought to the electrophysiology laboratory in stable condition in fasting state. Continuous electrocardiographic and hemodynamic monitoring was initiated.
The initial rhythm was atrial paced rhythm.
The procedure site was meticulously prepared with surgical scrub and allowed to dry with no pooling. Sterile draping was applied to cover the procedure site. The image intensifier was draped with sterile bag and positioned over the patient. After
infusion of local anesthetic, vascular access was obtained under ultrasound guidance and sheaths were placed over guide wire as detailed below.
Sheath and Catheter Placement:
The following catheters / sheaths were placed
Sheaths:
��������� 17Fr steerable sheath (Faradrive�, [employer]) in right femoral
��������� 10Fr in right femoral vein
Catheters:
��������� CARTO Pentaray mapping catheter � at locations of RA, LA
��������� Farawave� PFA catheter
��������� ICE catheter -AcuNav - at locations of RA, SVC, and RV. The ICE failed and was swapped with Mcwilliams ICE catheter
Intracardiac ECHO:
An 8-Malian AcuNav intracardiac ECHO (ICE) probe was advanced through the 9-Malian sheath in the right femoral vein into the right atrium under fluoroscopic and ICE ultrasound image guidance and a baseline ECHO study was performed. The left atrial
size was dilated. There was moderate tricuspid regurgitation. The aortic valve was grossly normal. There was normal left ventricular systolic functions. There is no significant pericardial effusion. All the four veins were identified and has flow
identified. There was good flow noted in the CHAYA.
Of note, the cardiac chambers were rotated and the LA was noted to be on the right side of the LA.
During the procedure, ICE was used for monitoring of complications, guidance of trans-septal puncture, monitor the catheter position and tracking ablation lesions. No change in the pericardial space noted throughout the procedure.
Trans-septal Puncture:
Heparin was initiated and infused to maintain appropriate ACT. A pigtail guidewire was advanced through the 8-Malian sheath in the right femoral vein into the superior vena cava under fluoroscopic and ICE guidance. The 9-Malian sheath was exchanged
for a Faradrive sheath which was advanced into the superior vena cava. A transseptal VersaCross RF pigtail via Faradrive connect system was utilized to perform the trans-septal puncture. The apparatus was withdrawn until it was in contact with the
fossa ovalis. The position was adjusted based on fluoroscopy and ultrasound images from ICE. Under fluoroscopic, hemodynamic and ICE ultrasound guidance, left atrium was cannulated by applying RF energy. Once atrial septum was cannulated, the
pigtail wire was advanced into the left atrium. The guide wire was advanced into the left superior pulmonary vein. Both the sheath and the dilator was advanced into the left atrium. The dilator was withdrawn. Blood was aspirated from the Faradrive
sheath and arterial blood confirmed. The sheath was flushed. Saline injection noted into the left atrium on ICE. The mapping catheter was advanced in the sheath into the left pulmonary vein. Left atrial pressure was measured.
3D Electroanatomic Mapping:
Using the Pentaray catheter advanced through sheath into the left atrium, an electroanatomic map (EAM) of the left atrium was created using CARTO mapping system. The map was used for localization of catheter position and tacking of ablation lesions.
The EAM of the left atrium showed 4 pulmonary veins with all 4 veins electrically connected to the body the LA. It showed normal voltage in the LA in sinus rhythm. The LA was dilated in size.
Following the EAM, preparation were made for ablation.
Ablation:
Ablation # 1: Pulmonary vein Isolation:
Using Farawave pulsed field ablation system, pulmonary vein isolation was achieved. First the ablation catheter was placed in the LSPV and ostial ablation lesions were performed in an �[place]� formation of the Farawave configuration and a counter
clock jarrett rotation was done and ablated to cover the area between the electrodes. Then the catheter was placed on the antral location in �[place]� configuration and multiple ablation lesions were placed circumferentially on the antrum of the vein.
In the similar fashion, the LIPV were isolated.
Then the catheter was moved to right sided veins. The ostial and antral ablations were placed as noted above.
EPS and Confirmation of the PVI and bidirectional block:
Following achievement of entrance block at the pulmonary veins, pacing from the HD catheter in each of the four veins at 10 milliamps for 2 milliseconds showed entrance and exit block. All PVI were rechecked at the end of the case and remained
isolated. Entrance and exit block were demonstrated in all veins.
Post ablation Electroanatomic mapping:
Once ablation was completed, the EAM of the LA was done again in sinus rhythm with excellent demarcation of LA myocardium and isolated antral tissue. There was no scar noted.
The CHAYA had healthy signals and was not isolated.
Procedure End
ICE study was done again that showed no epicardial accumulation. No complications noted.
Following the completion of the EP study, catheters were removed. Protamine 40 mg was given at the end of the procedure and ACT was checked repeatedly.
The 17 Fr sheath was downgraded to 10Fr and manual pressure applied. The sheaths were removed and hemostasis achieved with �Figure of 8 suture� and manual compression after acceptable ACT is achieved.
Left atrial Pressure:
Mean LA pressure was 11mmHg
Mean RA pressure was 8 mmHg.
Estimated Blood loss:
<10 cc
Specimens Removed:
None.
Implants / Devices:
None
Urine output:
None
Packs / Drains/ Tubes:
None
Instrument / Sponge Count Correct:
Yes
Complications of the Procedure:
None
Condition of Patient at Time of Transfer:
Hemodynamically stable with no neurological or vascular compromise.
Summary:
Successful atrial fibrillation ablation with Pulsed Field approach for pulmonary vein isolation, and posterior wall isolation. .
Figures from the Procedure:
Figure 1: The electroanatomic mapping (EAM) of the left atrium with bipolar voltage (purple indicates normal electrical activity with fairchild as no myocardial muscle electric activity indicating a line of block or scar.
--- NOTE | 2025-02-06 14:34 | W.PN.UPDATE ---
Update Note
Progress Note Update
Pt seen post PFA. Right groin site without ht/bleeding, oob ambulating, urinating without difficulty. Post EKG FRONT END TECHNICIAN 60s, no acute changes. Resume eliquis tonight at usual time, continue sotalol as before. Followup at [facility] as scheduled. Home today if
groin site/tele remain stable.
== END 2025-02-06 14:43 | disposition home or self-care (01) ==
LOC: CATH 05:52
PROVIDERS: ATTENDING PHYSICIAN Internal Medicine Cardiovascular Disease; FAMILY PHYSICIAN Family Medicine; OTHER PHYSICIAN Internal Medicine Cardiovascular Disease
DX: I48.0 Paroxysmal atrial fibrillation (principal); I49.5 Sick sinus syndrome; I44.7 Left bundle-branch block, unspecified; Z79.01 Long term (current) use of anticoagulants; Z79.899 Other long term (current) drug therapy; K21.9 Gastro-esophageal reflux disease without esophagitis; Z95.0 Presence of cardiac pacemaker
CPT/HCPCS: C1732; C1892; C1759; 85347; 86850; 86900; 86901; 93005; 93656; 93657; C1733; C1766